=== PATIENT | female | born 1995 | race Two or more races ===

== ENCOUNTER 2019-05-16 17:21 | Emergency (ER) | payer MEDICAID ==
[~2019-05-16] VITALS: Ht 154.9 cm; Wt 55.0 kg
[2019-05-16 17:42] VITALS: BP 127/78
== END 2019-05-16 20:08 | disposition home or self-care (01) ==
LOC: ER 17:21
DX: F43.20 Adjustment disorder, unspecified (principal); F43.9 Reaction to severe stress, unspecified; F12.10 Cannabis abuse, uncomplicated
CPT/HCPCS: 99284

== ENCOUNTER 2020-01-23 09:55 | Emergency (ER) | payer MEDICAID ==
[~2020-01-23] VITALS: Ht 154.9 cm; Wt 58.0 kg
[2020-01-23] MEDS ORDERED: IBUPROFEN 600MG TABLET PO ONE (11:15)
[2020-01-23 12:00] VITALS: BP 107/85
== END 2020-01-23 13:03 | disposition home or self-care (01) ==
LOC: ER 09:55
DX: S80.01XA Contusion of right knee, initial encounter (principal); J45.909 Unspecified asthma, uncomplicated; F12.10 Cannabis abuse, uncomplicated; W18.30XA Fall on same level, unspecified, initial encounter; Y93.89 Activity, other specified; Y92.89 Other specified places as the place of occurrence of the external cause; Y99.8 Other external cause status
CPT/HCPCS: 73610; 73630; 99284

== ENCOUNTER 2020-05-22 13:33 | Emergency (ER) | payer MEDICAID ==
[~2020-05-22] VITALS: Ht 160 cm; Wt 65.0 kg
[2020-05-22 14:26] VITALS: BP 118/86
== END 2020-05-22 14:35 | disposition home or self-care (01) ==
LOC: ER 13:33
DX: F51.02 Adjustment insomnia (principal); F51.5 Nightmare disorder; F43.8 Other reactions to severe stress
CPT/HCPCS: 99283